=== PATIENT | female | born 1990 | race Caucasian/White ===

== ENCOUNTER 2017-01-09 19:49 | Emergency (ER) | payer SELFPAY ==
[2017-01-09 20:35] LABS: BASOPHILS % 0.6 (0.0-1.5); EOSINOPHILS % 1.1 % (0.0-6.8); MEAN CORPUSCULAR HEMOGLOBIN 31.2 pg (28.0-34.0); MEAN CORPUSCULAR VOLUME 91.9 fl (80.0-100.0); MONOCYTES % 7.4 % (0.0-11.0); NEUTROPHILS # 5.8 # k/uL (1.4-7.7)
[2017-01-09 20:57] LABS: eGFR (African) > 60; eGFR (Non-African) > 60
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
[2017-01-09] MEDS ORDERED: 0.9 % SODIUM CHLORIDE 1,000 ML IV ONE (21:05)
[2017-01-09] MEDS: 0.9 % SODIUM CHLORIDE 1,000 ML IV SCH (21:10)
[2017-01-09] MEDS: fentaNYL CITRATE/PF 100 MCG/ 2ML AMP IVP ONE (21:16)
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
[2017-01-10 00:08] VITALS: BP 111/64
== END 2017-01-09 23:40 | disposition home or self-care (01) ==
LOC: ED 19:49
DX: E86.0 Dehydration (principal); J01.90 Acute sinusitis, unspecified; M19.90 Unspecified osteoarthritis, unspecified site; V89.2XXA Person injured in unspecified motor-vehicle accident, traffic, initial encounter; Y93.9 Activity, unspecified; Y99.9 Unspecified external cause status
CPT/HCPCS: 72125; 72131; 80053; 84703; 85025; J3010; 96372; 99284; J7030; S1016